=== PATIENT | male | born 1950 | race Caucasian/White ===

== ENCOUNTER 2020-12-28 15:48 | Emergency (ER) | payer MEDICARE, OTHER, SELFPAY ==
--- NOTE | 2020-12-28 16:02 | ED.CHESTPAIN ---
HPI - Chest Pain General Chief Complaint: Chest Pain Stated Complaint: Chest Pain Time Seen by Provider: 12/28/20 16:12 Source: patient and RN notes reviewed Mode of arrival: ambulatory Limitations: no limitations History of Present Illness HPI narrative: 70-year-old male presents with concern for left-sided chest pain that started last night. Reports the pain started under the axillary area and then spread to the left anterior chest. He denies any relieving or exacerbating factors, pain is not made worse by deep breathing or coughing, moving, bending, twisting, moving the arm, is not made worse by activity. He denies shortness of breath, diaphoresis. Denies a history of high blood pressure or high cholesterol. Reports he has been taking aspirin for the pain. He denies bruising, swelling, redness, rash. He reports he has had his pneumonia vaccine, has not yet had his shingles vaccine. MD complaint: chest pain Related Data Home Medications Medication Instructions Recorded Confirmed levothyroxine 12/28/20 timolol maleate drp 12/28/20 12/28/20 Allergies Allergy/AdvReac Type Severity Reaction Status Date / Time Penicillins Allergy Mild Rash Verified 12/28/20 16:13 Review of Systems Review of Systems: CONSTITUTIONAL: Denies malaise, chills, sweats, or fever. CARDIOVASCULAR: Reports left chest wall pain. Denies palpitations or edema. RESPIRATORY: Denies cough or dyspnea. GASTROINTESTINAL: Denies abdominal pain, nausea, vomiting, diarrhea SKIN: Denies redness, bruising, rash or itching. MUSCULOSKELETAL: Reports left chest wall pain on the anterior chest and under the left axilla NEUROLOGIC: Denies numbness, weakness, or headache. All systems reviewed & are unremarkable except as noted in HPI and below PMFSH Comments At time of signature, agree with nursing past medical, surgical, social and family history. There is no relevant family history pertinent to the presenting complaint Exam Narrative: GENERAL: Well-appearing, well-nourished, and in no acute distress. HEAD: Normocephalic, atraumatic. EYES: PERRLA, conjunctivae clear ENT: Nares clear. Mucous membranes moist. NECK: Supple. CHEST: No respiratory distress. Clear to auscultation. No bony deformities, no asymmetry. Speaks in full sentences. HEART: Regular rate and rhythm. No murmur heard. Normal peripheral pulses. EXTREMITIES: Grossly normal range of motion. No edema. Grossly normal strength and sensation. SKIN: Warm, dry, no visible rash. Pain noted to palpation to anterior left chest NEURO: Alert and oriented x3. PSYCH: Normal mood and affect Course Course Emergency Course: Discussed with patient when to seek further evaluation emergency room. Discussed following up with primary care provider for further evaluation. Discussed when to start antiviral medicine if shingles rash appears. Patient is aware of diagnosis, understands and agrees to treatment plan. Anticipatory guidance given. Patient agrees to follow-up as directed and is aware of reasons to seek care at the emergency department. Portions of this record may have been created with voice recognition software Vital Signs Vital signs: Reviewed. Pt has been instructed to follow up with his primary care provider within the next week regarding his elevated blood pressure today. MDM - Chest Pain MDM Narrative Medical decision making narrative: Exam findings show no acute concerns or changes; patient is non-toxic appearing and is in no distress. Patient is appropriate for outpatient treatment and follow-up. Differential Diagnosis Differential diagnosis: Likely fracture of rib, pneumothorax, stable angina, atypical chest pain, costochondritis, chest pain and other (Contusion, muscle spasm, shingles, cardiac event, pneumonia) Critical Care Time Critical Care Time Critical Care Time: No Discharge Plan Discharge Clinical Impression: Chest wall pain Patient Disposition: Home, Self-Care Condition: S
[2020-12-28 16:06] VITALS: BP 132/94; PULSE 83; RESP 18; TEMP 36.2; O2SAT 99
--- NOTE | 2020-12-28 16:07 | ECG_ITS ---
Measurements Intervals [place] Rate: 76 P: 41 WI: 152 QRS: 19 QRSD: 79 T: 54 QT: 391 QTc: 441 Interpretive Statements SINUS RHYTHM EARLY PRECORDIAL R/S TRANSITION BORDERLINE ECG Electronically Signed On 12-28-2020 16:58:14 CDT by Fredy Parsons D.O.
== END 2020-12-28 16:35 | disposition home or self-care (01) ==
PROVIDERS: Emergency Provider Nurse Practitioner
DX: R07.89 Other chest pain (principal); E89.0 Postprocedural hypothyroidism; H40.9 Unspecified glaucoma
CPT/HCPCS: 93005; 99213; G0463

== ENCOUNTER 2021-01-13 11:26 | Emergency (ER) | payer MEDICARE, OTHER, SELFPAY ==
[2021-01-13 12:03] VITALS: BP 134/96; PULSE 78; RESP 16; TEMP 36.2; O2SAT 98
--- NOTE | 2021-01-13 13:20 | ED.GENADULT ---
HPI - General Adult General Chief complaint: Skin/Abscess/Foreign Body Stated complaint: shingles Source: patient Mode of arrival: ambulatory Limitations: no limitations History of Present Illness HPI narrative: Patient is a 70-year-old male who presents to the [facility] via POV for evaluation of shingles located on left chest and left back that have been present for 17 days. Additionally, patient reports his pain worsened overnight prompting today's visit. He also reports swelling in the affected area. He states he was seen at this facility approximately 3 days after rash developed and treated valacyclovir for 7 days. He reports taking full antiviral course of treatment. Pain worsens with touch and is alleviated with cool compresses. Of note, patient reports he was supposed to start gabapentin prescribed by his PCP for this problem although he was concerned with the nasty side effects that can come along with this medication which is why he did not start medication. Related Data Home Medications Medication Instructions Recorded Confirmed levothyroxine 50 mcg PO DAILY 12/28/20 01/13/21 timolol maleate 1 drp OPHTHALMIC (EYE) DIRECTED 12/28/20 01/13/21 gabapentin 100 mg PO DAILY 01/13/21 01/13/21 montelukast 10 mg PO DAILY 01/13/21 01/13/21 testosterone cypionate 200 mg IM DIRECTED 01/13/21 01/13/21 Allergies Allergy/AdvReac Type Severity Reaction Status Date / Time Penicillins Allergy Mild Rash Verified 01/13/21 11:45 Review of Systems Review of Systems: Denies recent/new changes in soaps, perfumes, lotions, detergents, and shampoos. Denies working with chemicals. Denies new or changes in medications/foods. Pertinent negatives fever, chills, sweats, change in appetite, malaise, poor p.o. intake, recent weight loss, change in appetite, myalgias, lymphadenopathy, LOC, dizziness, sensation, petechiae, pruritus, streaking, warmth, lesions, easy bruising, lip/tongue/throat swelling, facial swelling, abdominal pain, nausea, vomiting, numbness, tingling, loss of sensation, cough, wheezing, chest pain, and heart palpitations/murmurs. [facility] Past Medical History Medical History (Updated 01/13/21 @ 13:33 by Amira Mitchell, [employer], [employer]) Glaucoma Hypothyroidism Low testosterone Seasonal allergies Shingles Comments I have reviewed and agree with the patient's past medical, surgical, social, and family hx as documented by the RN. There is no relevant family history pertinent to the presenting complaint. Exam Narrative: GENERAL: Well-appearing, well-nourished, and in no acute distress. HEAD: Normocephalic, atraumatic. No facial swelling appreciated. EYES: PERRLA and EOMI. No evidence of erythema, swelling, or drainage. ENT: Nares clear, no rhinorrhea or epistaxis.Mucous membranes moist and pink. Uvula is midline without erythema and swelling. No evidence of obstruction, petechial rash, cobblestoning, lesions, ulcers, erythema, swelling, exudates, peritonsillar abscess, tenting, or drooling. Breath odor and voice normal. NECK: Supple. No Lymphadenopathy or nuchal rigidity appreciated. CHEST: Bilateral lung dotson are clear to auscultation. No respiratory distress. No evidence of cough or pleuritic cp upon examination. HEART: Regular rate and rhythm. No murmur, gallop, or rub heard. EXTREMITIES: Normal range of motion. No edema. SKIN: Warm, dry. No evidence of cellulitis, abscess, streaking, induration, abrasions/lacerations, petechiae, hematoma, contusion, drainage, or bleeding. Moderate rash noted to left abdomen and left back. Rashes consistent with shingles. NEURO: No focal deficits. Alert and oriented x3. Course Vital Signs Vital signs: Vital Signs Temperature 97.1 F L 01/13/21 12:03 Pulse Rate 78 01/13/21 12:03 Respiratory Rate 16 01/13/21 12:03 Blood Pressure 134/96 H 01/13/21 12:03 Pulse Oximetry 98 01/13/21 12:03 Temperature 97.1 F L 01/13/21 12:03 Pulse Rate 78 01/13/21 1
== END 2021-01-13 13:24 | disposition home or self-care (01) ==
PROVIDERS: Emergency Provider Nurse Practitioner Family; PCP Internal Medicine
DX: B02.9 Zoster without complications (principal); H40.9 Unspecified glaucoma; E03.9 Hypothyroidism, unspecified
CPT/HCPCS: 99213; G0463